=== PATIENT | male | born 1995 | race Two or more races ===

== ENCOUNTER 2016-11-04 10:50 | Observation (INO) | payer MEDICAID ==
[2016-11-04] MEDS ORDERED: ACETAMINOPHEN 325 MG TABLET PO ONE (10:57)
--- NOTE | 2016-11-04 10:57 | ER Document Report ---
ED Medical Screen (RME) - General Stated Complaint: RECTAL BLEEDING Notes: patient is primary mongolian speaking onset was one week concern for abscess on right gluteal cheek. attempted to pop it and thats when it started bleeding. hot, tender fever and chills I have greeted and performed a rapid initial assessment of this patient. A comprehensive ED assessment and evaluation of the patient, analysis of test results and completion of the medical decision making process will be conducted by additional ED providers.
[2016-11-04] MEDS ORDERED: AMPICILLIN SOD/SULBACTAM 3 GM VIAL IV ONE (11:50)
--- NOTE | 2016-11-04 11:50 | ER Document Report ---
ED Skin Rash/Insect Bite/Abscs - General Chief Complaint: Abscess Stated Complaint: RECTAL BLEEDING Time seen by provider: 11:40 Mode of Arrival: Ambulatory Information source: Patient, Friend - pt with c/o possible abscess in rectal TRAVEL OUTSIDE OF THE [place] IN LAST 30 DAYS: No - HPI Patient complains to provider of: Tender/swollen area - pt states 1 week h/o red , swollen tender area in L buttock. Denies fever Past Medical History - Social History Smoking Status: Never Smoker Chew tobacco use (# tins/day): No Frequency of alcohol use: None Drug Abuse: None Family History: None Patient has suicidal ideation: No Patient has homicidal ideation: No Renal/ Medical History: Denies: Hx Peritoneal Dialysis - Immunizations Hx Diphtheria, Pertussis, Tetanus Vaccination: Yes Review of Systems - Review of Systems Constitutional: No symptoms reported EENT: No symptoms reported Cardiovascular: No symptoms reported Respiratory: No symptoms reported Skin: See HPI, Lesions Physical Exam - Vital signs Vitals: Temp Pulse Resp BP Pulse Ox 98.1 F 104 H 16 123/101 H 100 11/04/16 10:57 11/04/16 10:57 11/04/16 10:57 11/04/16 10:57 11/04/16 10:57 - General General appearance: Appears well In distress: Mild - Respiratory Respiratory status: No respiratory distress Breath sounds: Normal - Cardiovascular Rhythm: Regular Heart sounds: Normal auscultation - Rectal Tenderness: Yes Notes: there is a 8-10 cm area of erythema and induration on the L medial buttock with a central area of excoriation and dried blood. It is exquisitely TTP. Course - Vital Signs Vital signs: Temp Pulse Resp BP Pulse Ox 98.1 F 104 H 16 123/101 H 100 11/04/16 10:57 11/04/16 10:57 11/04/16 10:57 11/04/16 10:57 11/04/16 10:57 - Laboratory Result Diagrams: 11/04/16 11:50 11/04/16 11:50 Laboratory results interpreted by me: 11/04/16 11:50 WBC 16.1 H Seg Neutrophils % 85.3 H Lymphocytes % 7.8 L Absolute Neutrophils 13.7 H - Consults shahid Tariq Time consulted: 12:01 - he will see pt. in ED Reason for consultation: 11/04/16 12:01 evaluation for surgery Consulted provider: will come to ER Discharge - Discharge Clinical Impression: Rectal abscess Condition: Stable Disposition: ADMITTED OBSERVATION Admitting Provider: maria guadalupe Unit Admitted: Surgical Floor
[2016-11-04 12:03] LABS: ABSOLUTE BASOPHILS # (AUTO) 0.1 10^3/uL (0.0-0.2); ABSOLUTE EOSINOPHILS # (AUTO) 0.1 10^3/uL (0.0-0.6); ABSOLUTE LYMPHOCYTES (AUTO) 1.2 10^3/uL (0.5-4.7); ABSOLUTE MONOCYTES (AUTO) 0.9 10^3/uL (0.1-1.4); ABSOLUTE NEUT (AUTO) 13.7 10^3/uL (1.7-8.2); BASOPHILS % (AUTO) 0.3 % (0-2); EOSINOPHILS % (AUTO) 0.7 % (0-6); HEMATOCRIT 49.1 % (37.9-51.0); HEMOGLOBIN 16.5 g/dL (13.5-17.0); HGB HCT DIFFERENCE 0.4; LYMPHOCYTES % (AUTO) 7.8 % (13-45); MEAN CORPUSCULAR HEMOGLOBIN 32.3 pg (27.0-33.4); MEAN CORPUSCULAR HGB CONC 33.7 g/dL (32.0-36.0); MEAN CORPUSCULAR VOLUME 96 fl (80-97); MONOCYTES % (AUTO) 5.9 % (3-13); RED BLOOD COUNT 5.12 10^6/uL (4.35-5.55); RED CELL DISTRIBUTION WIDTH 12.9 % (11.5-14.0); SEGMENTED NEUTROPHILS % (AUTO) 85.3 % (42-78); WHITE BLOOD COUNT 16.1 10^3/uL (4.0-10.5)
[2016-11-04 12:37] LABS: ALANINE AMINOTRANSFERASE 35 U/L (21-72); ALBUMIN 4.3 g/dL (3.5-5.0); ALKALINE PHOSPHATASE 75 U/L (38-126); ANION GAP 9 (5-19); ASPARTATE AMINO TRANSFERASE 18 U/L (17-59); BLOOD UREA NITROGEN 12 mg/dL (7-20); CALCIUM 9.6 mg/dL (8.4-10.2); CARBON DIOXIDE 28 mmol/L (22-30); CHLORIDE 103 mmol/L (98-107); CREATININE RESULT 0.86 mg/dL (0.52-1.25); GLUCOSE 90 mg/dL (75-110); POTASSIUM 4.7 mmol/L (3.6-5.0); SODIUM 140.2 mmol/L (137-145); TOTAL PROTEIN 7.5 g/dL (6.3-8.2)
--- NOTE | 2016-11-04 12:53 | HISTORY AND PHYSICAL E ---
History and Physical NAME: NIHARIKA HARDWICK : 1995 AGE: 21Y ADMITTED: 11/04/2016 ROOM: ED37 HISTORY OF PRESENT ILLNESS: A 21-year-old male patient presented to the emergency room with a history of severe pain in the right gluteal area from the last 5 days, increasing in severity. He does not admit any spider or any insect bite. the swelling got increasingly severe came to emergency room. No history of fever. Probable history of diabetes. No other hematological disorders. PAST SURGICAL HISTORY: None. REVIEW OF SYSTEMS: As per examination. PHYSICAL EXAMINATION: GENERAL: Male patient otherwise healthy. HEAD AND NECK: No lymphadenopathy. No masses. CHEST: Both lung cuevas with good air entry. CARDIOVASCULAR: Both heart sounds are regular. ABDOMEN: Soft, nontender. EXTREMITIES: Warm and well perfused. BACK: In the gluteal area, there is a large gluteal abscess with surrounding induration and erythema. IMPRESSION OVERALL: Gluteal abscess, large with cellulitis. PLAN: Incision and drainage under anesthesia, IV antibiotic Unasyn and p.o. and explained to the patient and patient's family the condition, long-term outlook for the wound to heal. He will need to follow in the surgery clinic postoperative. DICTATING PHYSICIAN: CHELSI TITUS M.D. [id number] [facility]#: [id number] ID: [id number] JOB#: [id number] ACCT: [id number] cc:CHELSI TITUS M.D. > [facility]
[2016-11-04] MEDS ORDERED: BUPIVACAINE HCL 0.25 % INJ/PF (2.5 MG/1 ML) 30 ML VIAL ONE (14:05)
[2016-11-04] MEDS ORDERED: MIDAZOLAM 2 MG/2 ML INJ ONE (15:03)
[2016-11-04] MEDS ORDERED: FENTANYL CITRATE INJ/PF 100 MCG/2 ML AMPUL ONE (15:03)
[2016-11-04] MEDS ORDERED: ONDANSETRON HCL INJ/PF 4 MG/2 ML SDV ONE ×2 (15:04→20:08)
[2016-11-04] MEDS ORDERED: PROPOFOL INJ 200 MG/20 ML VIAL IV ONE (15:04)
[2016-11-04] MEDS ORDERED: FENTANYL CITRATE INJ/PF 100 MCG/2 ML AMPUL IV PRN ×3 (15:47)
[2016-11-04] MEDS ORDERED: DIPHENHYDRAMINE HCL 50 MG/ML VIAL IV PRN (15:47)
[2016-11-04] MEDS ORDERED: MEPERIDINE HCL/PF INJ 25 MG/1 ML DISP.SYRIN IV PRN (15:47)
[2016-11-04] MEDS ORDERED: PROMETHAZINE HCL INJ 25 MG/1 ML VIAL IV PRN ×2 (15:47)
[2016-11-04] MEDS ORDERED: MORPHINE SULFATE 10 MG/ML INJ IV PRN (15:47)
[2016-11-04] MEDS ORDERED: OXYCODONE-ACETAMINOPHEN 5-325 MG TABLET PO PRN ×2 (15:47)
[2016-11-04] MEDS ORDERED: HYDROMORPHONE HCL INJ/PF 2 MG/ML AMPULE ONE (15:53)
[2016-11-04] MEDS ORDERED: HYDROMORPHONE HCL INJ/PF 2 MG/ML AMPULE IV PRN (16:35)
[2016-11-04] MEDS ORDERED: HYDROCODONE/ACETAMINOPHEN 5-325 MG TABLET PO PRN (16:36)
[2016-11-04] MEDS: AMPICILLIN SODIUM/SULBACTAM NA 3 GM in NORMAL SALINE 100 ML IV SCH ×2 (18:27→23:56)
[2016-11-04] MEDS ORDERED: INFLUENZA ADLT QUAD (36MOS+) 2016-17 VAC 0.5 ML SYR IM PRN (18:58)
[2016-11-04] MEDS ORDERED: ONDANSETRON HCL INJ/PF 4 MG/2 ML SDV IV PRN (20:08)
[2016-11-05] MEDS: AMPICILLIN SODIUM/SULBACTAM NA 3 GM in NORMAL SALINE 100 ML IV SCH ×2 (05:18→11:18)
[2016-11-05 12:38] VITALS: BP 100/50
--- NOTE | 2016-11-05 13:38 | DISCHARGE SUMMARY E ---
Discharge Summary NAME: NIHARIKA HARDWICK : 1995 AGE: 21Y ADMITTED: 11/04/2016 DISCHARGED: 11/05/2016 FINAL DIAGNOSIS: The patient was admitted for a right gluteal area large abscess with necrotic infection. DISCHARGE DIAGNOSIS: Right gluteal large abscess with cellulitis, resolving. PROCEDURES PERFORMED: Incision and drainage of the large gluteal abscess along with debridement. HOSPITAL COURSE: This morning I evaluated him and he is feeling well. The pain is minimal, afebrile. The wound was examined. A change of wound care was given to the patient. I irrigated the wound and dressings were applied. Wound care instructions were given to the patient instructing him to follow up in the Surgery office. DISCHARGE MEDICATIONS: Percocet for the pain. DISCHARGE INSTRUCTIONS: Follow up in Surgical Clinic again in 2 weeks. DICTATING PHYSICIAN: CHELSI TITUS M.D. [id number] PHY#: [id number] ID: [id number] JOB#: [id number] ACCT: [id number] cc:CHELSI TITUS M.D. >
--- NOTE | 2016-11-05 16:48 | DISCHARGE SUMMARY E ---
Discharge Summary NAME: NIHARIKA HARDWICK : 1995 AGE: 21Y ADMITTED: 11/04/2016 DISCHARGED: 11/05/2016 ADMITTING DIAGNOSIS: Large abscess in the gluteal right area. DISCHARGE DIAGNOSIS: Large abscess in the gluteal right area. PROCEDURE: Incision and drainage and debridement of the right gluteal abscess along with necrotic tissue. HOSPITAL COURSE: Today the patient is feeling well it seems like. The dressings were changed. The wound is very clean, is being discharged home with the wound care instructions that were given, pain medication, Percocet and stool softener prescription given, and is again to follow up in the office in 1 week. DICTATING PHYSICIAN: CHELSI TITUS M.D. [id number] PHY#: [id number] ID: [id number] JOB#: [id number] ACCT: [id number] cc:CHELSI TITUS M.D. > [facility]
--- NOTE | 2016-11-05 19:27 | OPERATIVE REPORT E ---
Operative Report NAME: NIHARIKA HARDWICK : 1995 AGE: 21Y DATE OF SURGERY: 11/04/2016 ROOM: 535 PREOPERATIVE DIAGNOSIS: Large right-sided gluteal perineal abscess, possibly spider bite . POSTOPERATIVE DIAGNOSIS: Large right-sided gluteal perineal abscess, possibly spider bite . OPERATION: Incision and drainage and debridement of the large gluteal, possibly very lateralabscess. SURGEON: CHELSI TITUS M.D. ANESTHESIA: General. ESTIMATED BLOOD LOSS: Less than 20 mL. TISSUE REMOVED OR ALTERED: Specimens: Pus for culture and sensitivity. HISTORY AND INDICATIONS: As described. The patient presented to the emergency room with a large abscess that needed to be drained, so we kept him NPO and started him on antibiotic while in the emergency room. DESCRIPTION OF OPERATION: The patient was placed in the high lithotomy position. Perineal and gluteal area cleansed as a sterile field, and then the area of inflammation about 6 cm with a fluctuant . In the central area, about a 2 cm incision was made. A large amount of pus was drained, about 30 mL, and then the underlying necrotic base of subcutaneous fatty tissue was debrided, and the wound was copiously irrigated after complete hemostasis. Wound was lightly packed and dressings were applied. The patient was admitted for observation for IV antibiotic and pain management. DICTATING PHYSICIAN: CHELSI TITUS M.D. [id number] PHY#: [id number] ID: [id number] JOB#: [id number] ACCT: [id number] cc:CHELSI TITUS M.D. > [facility]
== END 2016-11-05 13:17 | disposition home or self-care (01) ==
LOC: ER 10:50 → EH 12:17 → 5 17:46
PROVIDERS: ATTEND Colon & Rectal Surgery
PROC: 0J990ZZ Drainage of Buttock Subcutaneous Tissue and Fascia, Open Approach (ICD-10-PCS; principal; 2016-11-04 16:45)
DX: L02.31 Cutaneous abscess of buttock (principal)
CPT/HCPCS: 10060; 99285; 96365; 36415; 87040; 87070; 87205; 85025; 87075; 87077; 80053; 87186; G0378 ×3; J2250; J3010; J0295 ×2; J1170; J2405; J2704; 300